=== PATIENT | male | born 1950 | race Caucasian/White ===

== ENCOUNTER 2019-04-10 06:05 | Inpatient (IN) | payer OTHER ==
[2019-04-09 16:21] LABS: BASOPHILS % (AUTO) 0.8 % (0-1); EOSINOPHILS # (AUTO) 0.3 X10'3 (0-0.9); LYMPHOCYTES # (AUTO) 2.1 X10'3 (1.1-4.8); LYMPHOCYTES % (AUTO) 34.9 % (21-51); MEAN CORPUSCULAR HEMOGLOBIN 30.3 PG (27.0-31.0); MEAN CORPUSCULAR HGB CONC 34.1 g/dL (33.0-36.5); MONOCYTES # (AUTO) 0.5 X10'3 (0-0.9); MONOCYTES % (AUTO) 8.9 % (2-12); NEUTROPHILS # (AUTO) 3.1 X10'3 (1.8-7.7); NEUTROPHILS % (AUTO) 50.4 % (42-75); PRE OP HEMATOCRIT 41.4 % (42.0-52.0); PRE OP HEMOGLOBIN 14.1 g/dL (14.0-17.9); PRE OP PLATELET COUNT 261 X10'3 (140-440); RED BLOOD COUNT 4.65 X10'6 (4.70-6.10); RED CELL DISTRIBUTION WIDTH 13.9 % (11.5-14.5)
[2019-04-09 16:33] LABS: PRE OP INR 1.1 INR; PRE OP PROTIME 10.9 SECONDS (9.0-12.0)
[2019-04-09 16:46] LABS: ALBUMIN 4.1 G/DL (3.4-5.0); ALBUMIN/GLOBULIN RATIO 1.1 (1.1-1.5); ALKALINE PHOSPHATASE 81 IU/L (46-116); BLOOD UREA NITROGEN 20 MG/DL (7-18); BUN/CREATININE RATIO 18.5 (5.4-32.0); CALCIUM 9.2 MG/DL (8.5-10.1); CHLORIDE 105 MMOL/L (99-107); CREATININE 1.08 MG/DL (0.60-1.10); PRE OP ALT 38 U/L (30-65); PRE OP ANION GAP 10 (8-16); PRE OP AST 20 U/L (10-37); PRE OP BILIRUB, TOTAL 0.5 MG/DL (0.0-1.0); PRE OP GLUCOSE 88 MG/DL (70-104); PRE OP POTASSIUM 3.9 MMOL/L (3.4-5.1); PRE OP SODIUM 142 MMOL/L (135-145); TOTAL CARBON DIOXIDE 27.3 MMOL/L (24-32); TOTAL PROTEIN 7.7 G/DL (6.4-8.2); eGFR 68 ML/MIN
[2019-04-10] VITALS (17 sets, daily range): BP systolic 100–139; BP diastolic 42–90
[~2019-04-10] VITALS: Ht 182.9 cm; Wt 102.1 kg
[~2019-04-10 06:05] MED LIST: DILT-36 PO; FINA5TAB11 PO; FLO0.4C PO; HYDR-4353 PO; LISI40TA4 PO; LORA10TA7 PO
[2019-04-10] MEDS ORDERED: LIDOcaine 1% (10mg/ml) 2ml vial ONE (06:33)
[2019-04-10] MEDS ORDERED: diphenhydrAMINE 25mg capsule PO PRN ×2 (06:35)
[2019-04-10] MEDS ORDERED: HYDROmorphone inj. 0.5 MG/0.5 ML DISP.SYRIN IV PRN (06:35)
[2019-04-10] MEDS ORDERED: magnesium hydroxide 30ml (MOM) UD suspension PO PRN (06:35)
[2019-04-10] MEDS ORDERED: acetaminophen 325mg tablet PO PRN (06:35)
[2019-04-10] MEDS ORDERED: HYDROmorphone 1 mg/ml syringe IV PRN ×2 (06:35→13:07)
[2019-04-10] MEDS ORDERED: bisacodyl 10mg suppository rectal RC PRN (06:35)
[2019-04-10] MEDS ORDERED: HYDROcodone/acetaminophen 10/325mg tab PO PRN (06:35)
[2019-04-10] MEDS ORDERED: epiNEPHrine 1 mg/ml inj ONE (06:42)
[2019-04-10] MEDS ORDERED: vancomycin 1,000mg inj ONE (06:42)
[2019-04-10] MEDS ORDERED: ketorolac trometh. 30mg/ml inj. ONE (06:42)
[2019-04-10] MEDS ORDERED: ROPIVAcaine 0.5% (5mg/ml) 30ml vial ONE (06:42)
[2019-04-10] MEDS ORDERED: cloNIDine hcl/PF 100mcg/ml inj ONE (06:42)
[2019-04-10] MEDS ORDERED: gabapentin 300mg capsule PO ONE (07:00)
[2019-04-10] MEDS ORDERED: tranexamic acid inj. 1,000 MG in normal saline 100 ML IV ONE (07:00)
[2019-04-10] MEDS ORDERED: celeCOXIB 100mg capsule PO ONE (07:00)
[2019-04-10] MEDS ORDERED: acetaminophen 325mg tablet PO ONE (07:00)
[2019-04-10] MEDS ORDERED: cefazolin/dext.iso 2gm/100 ML IV ONE (07:00)
[2019-04-10] MEDS ORDERED: vancomycin inj 1,500 MG in normal saline 300ml IV soln IV ONE (07:00)
[2019-04-10] MEDS ORDERED: ringers solution, lacted 1,000 ML IV SCH ×2 (07:00→09:33)
[2019-04-10] MEDS ORDERED: metoclopramide 5 mg/ml inj IV ONE (07:00)
[2019-04-10] MEDS ORDERED: oxyCODONE SR 10mg (sust. release) tab -2 tabs (20mg) PO ONE (07:00)
[2019-04-10] MEDS ORDERED: famotidine 20mg tablet PO ONE (07:00)
[2019-04-10] MEDS ORDERED: MIDAZolam 1mg/ml 10ml vial ONE (08:50)
[2019-04-10] MEDS ORDERED: fentaNYL/PF 50MCG/1 ML 2ML syringe ONE (08:50)
[2019-04-10] MEDS ORDERED: morphine /PF 1mg/ml 10ml inj. ONE (08:51)
[2019-04-10] MEDS ORDERED: morphine 10mg/ml inj. ONE (08:51)
[2019-04-10] MEDS ORDERED: BUPIVAcaine/PF 7.5mg/ml (0.75%) 10ml vial ONE (08:53)
[2019-04-10] MEDS ORDERED: ePHEDrine 50MG/ML INJ. ONE (09:06)
[2019-04-10] MEDS ORDERED: naloxone 2mg/2ml inj 2 MG in normal saline 500ml IV soln 500 ML IV PRN (09:34)
[2019-04-10] MEDS ORDERED: morphine 4 MG/ML inj SYRINge IV PRN ×2 (09:35)
[2019-04-10] MEDS ORDERED: ondansetron/PF 4mg/2ml inj IV PRN ×2 (09:35)
[2019-04-10] MEDS ORDERED: meperidine/PF 25mg/ml syringe IV PRN ×3 (09:35)
[2019-04-10] MEDS ORDERED: proCHLORperazine 10 MG/2 ml inj IV PRN (09:35)
[2019-04-10] MEDS ORDERED: diphenhydrAMINE 50 mg/ml inj IV PRN (09:35)
--- NOTE | 2019-04-10 10:20 | NUR ---
ADMITTED TO PACU FROM OR ACCOMPANIED BY ANESTHESIA. INTIAL PHYSICAL ASSESSMENT DONE AND RECORDED. AWAKE AND RESPONSE ON ARRIVE YO PACU, REPORT RECEIVED FROM ANESTHESIA.
--- NOTE | 2019-04-10 11:20 | NUR ---
PACU DISCHARGE CRITERIA MET, REPORT GIVEN TO FLOOR. DENIES PAIN OR DISCOMFORT, TRANSFERRED TO ROOM IN STABLE GOOD CONDITION.
[2019-04-10] MEDS: multivitamins, therapeutics tablet PO SCH (11:31)
[2019-04-10] MEDS: ascorbic acid 500mg tablet PO SCH ×2 (11:31→20:09)
[2019-04-10] MEDS: aspirin 325mg tablet PO SCH (11:31)
[2019-04-10] MEDS: gabapentin 300mg capsule PO SCH ×3 (11:31→20:09)
[2019-04-10] MEDS: potassium cl 20mEq in 1/2 NS 1,000 ML IV SCH ×2 (12:08→13:41)
[2019-04-10] MEDS ORDERED: tranexamic acid inj. 1,000 MG in normal saline 100ml IV soln 100 ML IV ONE (13:20)
[2019-04-10] MEDS: ondansetron/PF 4mg/2ml inj IV PRN ×2 (13:44→20:09)
[2019-04-10] MEDS: cefazolin/dext.iso 2gm/100ml 100 ML IV SCH (16:23)
[2019-04-10] MEDS: HYDROcodone/acetaminophen 10/325mg tab PO PRN (18:52)
[2019-04-10] MEDS ORDERED: sennosides 8.6mg tablet PO SCH (21:00)
--- NOTE | 2019-04-10 23:24 | NUR ---
Patient informed nursing that he felt the urge to urinate. Assessment of price catheter was conducted and it was found to be out. Pt had no complaints of pain or knowledge that the catheter had come out. Urinal provided to patient.
--- NOTE | 2019-04-11 00:39 | NUR ---
Patient with complaints of not being able to void. Bladder scan was completed with 390ml noted. Patient was assisted to stand at bedside to see if this would help him urinate. He was still not able. Straight cath was completed with 350 mls of urine collected.
[2019-04-11] MEDS: cefazolin/dext.iso 2gm/100ml 100 ML IV SCH (00:50)
[2019-04-11 02:00] VITALS: BP 126/57
[2019-04-11] MEDS: potassium cl 20mEq in 1/2 NS 1,000 ML IV SCH (04:02)
[2019-04-11] MEDS: HYDROcodone/acetaminophen 10/325mg tab PO PRN (04:03)
--- NOTE | 2019-04-11 04:23 | NUR ---
bladder scan at this time , 193ml. no straight cath at this time.
[2019-04-11] MEDS ORDERED: HYDROcodone/acetaminophen 10/325mg tab PO PRN (05:20)
[2019-04-11 06:00] VITALS: BP 146/65
--- NOTE | 2019-04-11 06:05 | NUR ---
REPORT GIVEN TO MAN IZAGUIRRE.
[2019-04-11 06:06] LABS: BASOPHILS % (AUTO) 0.3 % (0-1); EOSINOPHILS # (AUTO) 0.2 X10'3 (0-0.9); EOSINOPHILS % (AUTO) 3.6 % (0-6); HEMATOCRIT 34.5 % (42.0-52.0); LYMPHOCYTES # (AUTO) 1.2 X10'3 (1.1-4.8); LYMPHOCYTES % (AUTO) 20.2 % (21-51); MEAN CORPUSCULAR HEMOGLOBIN 31.1 PG (27.0-31.0); MEAN CORPUSCULAR HGB CONC 34.7 g/dL (33.0-36.5); MEAN CORPUSCULAR VOLUME 89.8 FL (78-98); MEAN PLATELET VOLUME 8.6 FL (7.4-10.4); MONOCYTES # (AUTO) 0.5 X10'3 (0-0.9); MONOCYTES % (AUTO) 8.1 % (2-12); NEUTROPHILS % (AUTO) 67.8 % (42-75); PLATELET COUNT 208 X10'3 (140-440); RED BLOOD COUNT 3.84 X10'6 (4.70-6.10); RED CELL DISTRIBUTION WIDTH 13.4 % (11.5-14.5); WHITE BLOOD COUNT 5.9 X10'3 (4.5-11.0)
[2019-04-11 06:13] LABS: ANION GAP 9 (8-16); CHLORIDE 104 MMOL/L (99-107); POTASSIUM 4.4 MMOL/L (3.5-5.1); SODIUM 139 MMOL/L (135-145); TOTAL CARBON DIOXIDE 26.2 MMOL/L (24-32)
[2019-04-11] MEDS ORDERED: lisinopril 20mg tablet PO SCH (08:00)
[2019-04-11] MEDS ORDERED: diltiazem CD 180mg cap (once-daily) PO SCH (08:00)
[2019-04-11] MEDS ORDERED: loratadine 10mg tablet PO SCH (08:00)
[2019-04-11] MEDS ORDERED: ASPI-1 PO (08:07)
[2019-04-11 08:20] VITALS: BP_SYST 130
[2019-04-11] MEDS: gabapentin 300mg capsule PO SCH (08:20)
[2019-04-11] MEDS: multivitamins, therapeutics tablet PO SCH (08:20)
[2019-04-11] MEDS: aspirin 325mg tablet PO SCH (08:20)
[2019-04-11] MEDS: ascorbic acid 500mg tablet PO SCH (08:20)
[2019-04-11] MEDS ORDERED: tamsulosin 0.4mg capsule PO SCH (12:00)
[2019-04-11] MEDS ORDERED: finasteride 5mg tablet PO SCH (12:00)
== END 2019-04-11 10:10 | disposition home or self-care (01) | DRG 470 ==
LOC: PAS IN 06:05 → EDSTATUS 09:00 → ORTHO 4S 11:15
PROVIDERS: ADMIT Orthopaedic Surgery; ATTEND Orthopaedic Surgery
PROC: 0SRB06Z Replacement of Left Hip Joint with Oxidized Zirconium on Polyethylene Synthetic Substitute, Open Approach (ICD-10-PCS; principal; 2019-04-10 08:40)
DX: M16.12 Unilateral primary osteoarthritis, left hip (principal); D62 Acute posthemorrhagic anemia; N40.0 Benign prostatic hyperplasia without lower urinary tract symptoms; I10 Essential (primary) hypertension
CPT/HCPCS: 36415; 71046; 72170; 80051; 80053; 82948; 85025; 85610; 85730; 86885; 86900; 86901; 86920; 87081; 97110; 97116; 97162; 97530; A4615; A7000; C1758; C1776; G0378; J0171; J0735; J1885; J2001; J2250; J2270; J2405; J2765; J2795; J3010; J3370; J3480; J3490; J7120